=== PATIENT | female | born 1990 | race Caucasian/White ===

== ENCOUNTER 2017-05-18 22:10 | Emergency (ER) | payer OTHER | END 2017-05-19 03:27 | disposition home or self-care (01) | LOC: ER 22:10 | DX: S80.862A Insect bite (nonvenomous), left lower leg, initial encounter (principal); W57.XXXA Bitten or stung by nonvenomous insect and other nonvenomous arthropods, initial encounter; Z79.3 Long term (current) use of hormonal contraceptives | CPT/HCPCS: 99282 ==